=== PATIENT | female | born 2005 | race Caucasian/White ===

== ENCOUNTER 2025-04-17 21:53 | Emergency (ER) | payer SELFPAY ==
[2025-04-17 21:56] VITALS: BP 139/102
[2025-04-17 22:33] VITALS: BMI 21.5
--- NOTE | 2025-04-17 23:33 | ED.GENMED ---
History of Present Illness
General
Chief Complaint: Musculo-Skeletal Complaint
Source: patient
Exam Limitations: none
Time Seen by Provider: 04/17/25 23:04
Nursing documentation reviewed up to this point in time: agreed with
History of Present Illness
History of Present Illness:
19-year-old female presenting after knee Dislocation while at a hockey camp prior to arrival. This was reduced at the scene. Does have ongoing pain to the area denies numbness or weakness.
Review of Systems
Review of Systems
Allergies reviewed?: Yes
All Other Systems: ROS reviewed and negative except as documented in HPI and ROS
Phy Exam
Physical Exam
Physical Exam:
GENERAL: Alert , in no apparent distress
EYE: pupils equal and reactive
NECK: Supple, no significant adenopathy.
ENT: o/p clr, mmm.
CARDIAC: Regular rate and rhythm .
LUNGS: Clear breath sounds bilaterally, no acute respiratory distress, no wheezes/rales/rhonchi
ABDOMEN: Soft, without focal tenderness, no r/g, no cvat
NEUROLOGICAL: Alert and oriented, no focal neuro deficits
SKIN: Warm and dry, skin intact.
MUSCULOSKELETAL: Swelling tenderness palpation to the left anterior knee able to straight leg raise does have range of motion at the knee but does have discomfort when doing so. Normal ankle examination normal distal pulses and sensation well
perfused.
PSYCH: Normal and appropriate interaction.
Course
Orders/Labs/Results
Orders:
Orders
04/17/25 22:24
Knee, Left 4 or More Views [CR Knee - Left 4 Or More View*] Urgent
Comment: Per hospital
Reason For Exam: SP left knee reduction after dislocation
Vital Signs
Initial and Last Documented VS:
Initial Vital Signs
Temp Pulse Resp BP Pulse Ox
98.4 F 105 15 139/102 98
04/17/25 21:56 04/17/25 21:56 04/17/25 21:56 04/17/25 21:56 04/17/25 21:56
Last Documented Vital Signs
Temp Pulse Resp BP Pulse Ox
98.4 F 105 15 139/102 98
04/17/25 21:56 04/17/25 21:56 04/17/25 21:56 04/17/25 21:56 04/17/25 22:33
MDM/Problems Addressed
MDM/Problems Addressed:
19-year-old female presenting with concerns of what sounds to be described as a knee Dislocation that is been reduced prior to arrival. X-ray without emergent findings. Stable for outpatient management and orthopedic follow-up with knee
immobilizer and crutches. Return precautions given.
*Pulse Oximetry
SaO2: 98
Oxygen Mode of Delivery: Room air
Patient hypoxic: no (98)
*Critical Care Note
Total Time (30-74mins, 75-104mins- exclusive of procedures): Not Applicable
ED Attending Note
-
Portions of this chart may have been created with voice recognition software.� Occasional wrong word or��sound alike� substitutions may have occurred due to the inherent limitations of voice recognition software.
Discharge Plan
Departure
Patient Disposition: Home (Routine Discharge)
Date of Disposition: 04/17/25
Time of Disposition: 23:40
Patient with high blood pressure during this ER visit?: No
Condition: Good
Covid-19: Not Applicable
Discharge Problem:
Closed patellar dislocation
Instructions: Knee Immobilizer (DC), Dislocated Kneecap (DC)
Prescriptions:
No Action
Rigevidon
1 tab PO DAILY
Rx Instructions:
150/30 mcg, on for 21 days off for 7 days
Referrals:
Addison Brewer MD [Active, Orthopedics]
UNKNOWN - PT DOES,NOT KNOW [Family Provider]
Activity Restrictions/Additional Instructions:
You came to the emergency department today with concerns of a kneecap dislocation. Please use the knee immobilizer crutches and follow-up closely with orthopedics. In meantime please rest ice compress and elevate to help with symptoms.
Interventions
Interventions:
*Risk Screen - Suicide Last Done: 04/17/25 21:56
*General Assessment Last Done: 04/17/25 21:56
*Neglect/Abuse Screening Last Done: 04/17/25 21:56
*ED- Fall Risk Assessment Last Done: 04/17/25 22:33
*ED COVID-19 Vaccine History Last Done: 04/17/25 22:33
ED-Musculoskeletal Assessment Last Done: 04/17/25 22:33
Discharge Date and Time
Print Language: GERMAN
== END 2025-04-17 23:59 | disposition home or self-care (01) ==
LOC: EMR 21:53
PROVIDERS: EMERGENCY PHYSICIAN Student in an Organized Health Care Education/Training Program
DX: S83.005A Unspecified dislocation of left patella, initial encounter (principal); X58.XXXA Exposure to other specified factors, initial encounter
CPT/HCPCS: 29505; 99283; 73564